=== PATIENT | male | born 1975 | race Caucasian/White ===

== ENCOUNTER 2019-06-07 14:07 | Emergency (ER) | payer BC ==
[~2019-06-07] VITALS: Ht 177.8 cm; Wt 97.5 kg
[2019-06-07 14:26] VITALS: BP 161/99
[2019-06-07] MEDS ORDERED: BENADRYL IM STA (14:33)
[2019-06-07] MEDS ORDERED: DECADRON IM STA (14:33)
--- NOTE | 2019-06-07 14:35 | ER.PDOC ---
General Chief Complaint: Headache Stated Complaint: MIGRAINE Time seen by MD: 14:20 Source: patient Exam Limitations: no limitations History of Present Illness Initial Comments Pt with history of weekly headaches described as starting in posterior neck and propagating up and around to B temples. Scheduled for surgery on cervical disc on 06/18 which is thought to be the source of the headaches. Timing/Duration: episodic, waxing and waning Severity/Quality: severe, pressure, throbbing Prior Headaches/Recent Trauma: frequent headaches Associated Symptoms: sensitivity to light Modifying Factors: improves with medication Prior symptoms/Treatment: Similar symptoms previous, Recenly Seen, Treated by Doctor Past Medical History Surgical History: other (Multiple back surgeries) Social History Smoking: chew Alcohol Use: none Drug Use: none Review of Systems Constitutional: no symptoms reported Eyes: photophobia Ears, Nose, Mouth, Throat: no symptoms reported Respiratory: no symptoms reported Cardiovascular: no symptoms reported Gastrointestinal: no symptoms reported Genitourinary: no symptoms reported Musculoskeletal: back pain, neck pain Skin: no symptoms reported Psychiatric/Neurological: no symptoms reported Physical Exam General Appearance: WD/WN, Moderate Distress Head/Eyes: eyes nml inspection, no facial swelling, no nystagmus, PERRL ENT: nml ENT inspection, pharynx nml Neck: nml inspection, Supple Cardiovascular: Normal Peripheral Pulses, Regular Rate, Rhythm, No Edema, No Gallop, No JVD, No Murmur Respiratory: chest non-tender, lungs clear, normal breath sounds, no respiratory distress, no accessory muscle use Gastrointestinal: Normal Bowel Sounds, No Organomegaly, No Pulsatile Mass, Non Tender, Soft Back: Normal Inspection, No CVA Tenderness, No Vertebral Tenderness Extremities: Normal Range of Motion, Non-Tender, Normal Inspection, No Pedal Edema, No Calf Tenderness, Normal Capillary Refill Psychiatric: Alert, Oriented x 3 Cranial Nerves: Normal Hearing, Normal Speech, PERRL Coordination/Gait: Normal Finger to Nose, Normal Gait Motor/Sensory: No Motor Deficit, No Sensory Deficit, No Pronator Drift, Negative Babinski's Sign Skin: Warm/Dry, Normal Color Lymphatic: No Adenopathy Results/Orders Results/Orders Vital Signs Date Time Temp Pulse Resp B/P (MAP) Pulse Ox O2 Delivery O2 Flow Rate FiO2 06/07/19 14:18 98.1 58 16 97 Room Air Departure Time of Disposition: 14:35 Disposition: 01 HOME, SELF-CARE Impression: Primary Impression: Headache Qualified Codes: G44.219 - Episodic tension-type headache, not intractable Condition: Stable Referrals: PCP,UNKNOWN (PCP) PRIMARY CARE PROVIDER Duration or Time Spent with Pa: 10 PETE HERRERA MD Jun 07, 2019 14:35
[2019-06-07] MEDS ORDERED: TORADOL ONE (14:36)
[2019-06-07] MEDS ORDERED: DECADRON ONE (14:36)
[2019-06-07] MEDS ORDERED: BENADRYL ONE (14:47)
[2019-06-07] MEDS ORDERED: TORADOL IM ONE (15:00)
[2019-06-07 15:17] VITALS: BP 161/99
== END 2019-06-07 15:18 | disposition home or self-care (01) ==
LOC: ER 14:07
DX: R51 Headache (principal); H53.149 Visual discomfort, unspecified; M54.2 Cervicalgia; M54.9 Dorsalgia, unspecified; Z98.890 Other specified postprocedural states
CPT/HCPCS: 96372 ×2; 99284; J1100; J1200; J1885